=== PATIENT | male | born 1975 | race Caucasian/White ===

== ENCOUNTER 2024-08-24 06:17 | Day surgery (SDC) | payer OTHER, SELFPAY ==
[2024-08-24] VITALS (9 sets, daily range): BP systolic 113–133; BP diastolic 48–89; BMI 34.2
== END 2024-08-24 16:28 | disposition home or self-care (01) ==
LOC: SDS 06:17
PROVIDERS: ATTENDING PHYSICIAN Surgery; PRIMARYCARE PHYSICIAN Internal Medicine
DX: N47.5 Adhesions of prepuce and glans penis (principal); N48.89 Other specified disorders of penis
CPT/HCPCS: 54164